=== PATIENT | male | born 1990 | race African-American/Black ===

== ENCOUNTER 2025-04-06 16:23 | Emergency (ER) | payer SELFPAY ==
[~2025-04-06] VITALS: Ht 172.7 cm; Wt 111.1 kg
[2025-04-06 16:46] VITALS: BP 146/71; TEMP 98.3; O2SAT 96
== END 2025-04-06 17:55 | disposition left against medical advice (07) ==
LOC: ER 16:28
DX: R20.0 Anesthesia of skin (principal); Z53.21 Procedure and treatment not carried out due to patient leaving prior to being seen by health care provider